=== PATIENT | female | born 1980 | race Caucasian/White ===

== ENCOUNTER → 2017-05-25 | Outpatient (CLI) | payer BC ==
[~2017-05-25] MED LIST: AMOXICILLIN 50500 MG PO; BACTRIM DS 8001 TAB PO; FLEXERIL10 MG PO; IBUPROFEN200 MG PO; KEFLEX 250250 MG/5 M PO; KEFLEX 500MG.500 MG PO; LEVOTHYROXINE0.05 MG NG; LORTAB 5/500 501 TAB PO; MOTRIN600 MG PO; NOMEDS; NORCO 325 MG-51 TAB PO; PREDNISONE 20MG20 MG PO; ULTRAM 50 MG TA50 MG PO; VOLTAREN75 MG PO; ZITHROMAX Z PA250 MG PO
== END ==
LOC: LAB 16:15
DX: E53.8 Deficiency of other specified B group vitamins (principal); E03.9 Hypothyroidism, unspecified